=== PATIENT | female | born 1990 | race Caucasian/White ===

== ENCOUNTER 2023-07-04 11:23 | Outpatient (CLI) | payer OTHER, SELFPAY ==
--- NOTE | ~2023-07-04 | US_ITS ---
EXAMINATION: US soft tissue head and neck DATE: 07/04/2023 11:43 INDICATION: Left neck lymphadenopathy. TECHNIQUE: Multiple grayscale and Doppler ultrasound images of the head and neck were obtained. COMPARISON: None FINDINGS: There are normal lymph nodes in left neck in the patient's area of concern. IMPRESSION: 1. No abnormal neck mass or lymphadenopathy in left neck. Reviewed, dictated and finalized at location E.
== END 2023-07-04 11:24 ==
PROVIDERS: PCP Physician Assistant; Visit Provider Physician Assistant
DX: R59.0 Localized enlarged lymph nodes (principal)
CPT/HCPCS: 76536

== ENCOUNTER 2023-11-27 12:41 | Outpatient (CLI) | payer OTHER, SELFPAY ==
--- NOTE | ~2023-11-27 | CT_ITS ---
EXAMINATION: CT soft tissue neck w con DATE: 11/27/2023 13:16 INDICATION: Localized enlarged lymph nodes. TECHNIQUE: Computed tomography (CT) of the neck was performed with 75 mL Omnipaque-350 intravenous co ntrast. Automated exposure control and iterative reconstruction technique were employed. The dose-josafat gth product was 369.83 mGy-cm. COMPARISON: Ultrasound 07/04/2023 FINDINGS: There are no pathologically enlarged lymph nodes. There is a 4 mm nodule in right thyroid l obe, likely not clinically significant. The cervical carotid arteries are normal. The paranasal sinus es are clear. The mastoid air cells are normal. There is mild cervical spondylosis. IMPRESSION: 1. No lymphadenopathy. Reviewed, dictated and finalized at location A. IMPRESSION: 1. No lymphadenopathy.
[2023-11-27 13:04] LABS: Estimated Glomerular Filt Rate > 60
== END 2023-11-27 12:42 | disposition home or self-care (01) ==
PROVIDERS: PCP Physician Assistant; Visit Provider Physician Assistant
DX: R59.0 Localized enlarged lymph nodes (principal)
CPT/HCPCS: 70491; Q9967